=== PATIENT | male | born 1955 | race American Indian/Alaskan Native ===

== ENCOUNTER 2018-08-13 17:09 | Emergency (ER) | payer MEDICAID ==
[2018-08-13 17:51] VITALS: BP 152/108
--- NOTE | 2018-08-13 17:52 | Emergency Department Report ---
Blank Doc - Documentation Documentation: 63 y o male presents with right 3rd digit pain and swelling, worsened since sun day stuck a needle in it to get pus out xray ordered
--- NOTE | 2018-08-13 19:46 | XRay Report ---
FINAL REPORT EXAM: XR FINGER(S) 2+V RT HISTORY: pain/swelling purulent discharge from finger. TECHNIQUE: Frontal view of the right hand and lateral view of the right 3rd finger. Comparison: None FINDINGS: The there is diffuse somewhat linear increased density that appears to be in or on the dermis of the distal aspect of the 3rd finger. This can be seen with topical iodine solutions. There is no other evidence of radiopaque foreign body. There is soft tissue swelling of the distal aspect of the finger. The bony structures are unremarkable. There is no evidence of lytic or blastic change or periosteal r eaction. IMPRESSION: 1. Soft tissue swelling of the distal aspect of the 3rd finger without evidence of bony abnormality. 2. Somewhat linear increased density that appears to be in or on the dermis of the distal aspect of t he 3rd finger which can be seen with topical iodine solutions. Correlation with clinical history and physical exam will be helpful.
[2018-08-13] MEDS ORDERED: NORCO 10/325 PO ONE (20:44)
[2018-08-13] MEDS ORDERED: CLEOCIN IM ONE (20:44)
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
== END 2018-08-13 21:06 | disposition home or self-care (01) ==
LOC: ED 17:09
DX: L03.011 Cellulitis of right finger (principal); F17.200 Nicotine dependence, unspecified, uncomplicated; Z88.2 Allergy status to sulfonamides
CPT/HCPCS: 96372

== ENCOUNTER 2019-11-02 11:01 | Emergency (ER) | payer MEDICAID ==
[2019-11-02 11:14] VITALS: BP 135/92
--- NOTE | 2019-11-02 11:44 | XRay Report ---
CHEST 2 VIEWS INDICATION / CLINICAL INFORMATION: Cough. COMPARISON: None available. FINDINGS: SUPPORT DEVICES: None. HEART / MEDIASTINUM: No significant abnormality. LUNGS / PLEURA: No significant pulmonary or pleural abnormality. No pneumothorax. ADDITIONAL FINDINGS: No significant additional findings. IMPRESSION: 1. No acute findings. Signer Name: Taran Han MD Signed: 11/02/2019 11:40 AM Workstation Name: [email or web address]
[2019-11-02 12:12] LABS: Alanine Aminotransferase 10 units/L (7-56); Albumin 4.1 g/dL (3.9-5); BUN/Creatinine Ratio 17; Blood Urea Nitrogen 20 mg/dL (9-20); Calcium 9.3 mg/dL (8.4-10.2); Hemolysis Index 3
[2019-11-02 12:54] LABS: Basophils % (Auto) 0.6 % (0.0-1.8); Eosinophils # (Auto) 0.2 K/mm3 (0.0-0.4); Eosinophils % (Auto) 6.1 % (0.0-4.3); Hematocrit 32.9 % (35.5-45.6); Hemoglobin 10.9 gm/dl (11.8-15.2); Lymphocytes # (Auto) 1.2 K/mm3 (1.2-5.4); Lymphocytes % (Auto) 39.8 % (13.4-35.0); Mean Corpuscular HGB Conc 33 % (32-34); Mean Corpuscular Volume 83 fl (84-94); Monocytes # (Auto) 0.3 K/mm3 (0.0-0.8); Monocytes % (Auto) 10.5 % (0.0-7.3); Platelet Count 148 K/mm3 (140-440); Red Blood Count 3.96 M/mm3 (3.65-5.03); Red Cell Distribution Width 14.9 % (13.2-15.2)
[2019-11-02 13:36] LABS: Bilirubin,Urine NEG (Negative); Blood,Urine NEG (Negative); Color,Urine Yellow (Yellow); Hyaline Casts,Urine 2 /LPF; Mucus,Urine FEW /HPF; Urobilinogen,Urine < 2.0 mg/dL (<2.0)
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
== END 2019-11-02 14:52 | disposition home or self-care (01) ==
LOC: ED 11:01
DX: J06.9 Acute upper respiratory infection, unspecified (principal); F12.10 Cannabis abuse, uncomplicated; F17.200 Nicotine dependence, unspecified, uncomplicated; Z79.899 Other long term (current) drug therapy; Z88.2 Allergy status to sulfonamides
CPT/HCPCS: 36415; 71046; 80053; 81001; 85025

== ENCOUNTER 2021-07-12 19:31 | Inpatient (IN) | payer MEDICAID ==
[2021-07-12] MEDS ORDERED: ONDANSETRON 4 MG ODT TAB PO ONE (20:51)
[2021-07-12] MEDS ORDERED: ACETAMINOPHEN 500 MG TAB PO ONE (20:51)
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
[2021-07-12 21:17] LABS: Basophils % (Auto) 0.4 % (0.0-1.8); Hematocrit 43.5 % (35.5-45.6); Hemoglobin 13.8 gm/dl (11.8-15.2); Lymphocytes # (Auto) 0.8 K/mm3 (1.2-5.4); Lymphocytes % (Auto) 22.3 % (13.4-35.0); Mean Corpuscular HGB Conc 32 % (32-34); Mean Corpuscular Volume 86 fl (84-94); Monocytes # (Auto) 0.4 K/mm3 (0.0-0.8); Monocytes % (Auto) 10.7 % (0.0-7.3); Platelet Count 155 K/mm3 (140-440); Red Blood Count 5.06 M/mm3 (3.65-5.03); Red Cell Distribution Width 13.2 % (13.2-15.2)
[2021-07-12 21:39] LABS: Alanine Aminotransferase 29 units/L (7-56); Albumin 3.4 g/dL (3.9-5); BUN/Creatinine Ratio 22; Blood Urea Nitrogen 57 mg/dL (9-20); Calcium 8.7 mg/dL (8.4-10.2); Hemolysis Index 59
[2021-07-12] MEDS ORDERED: SODIUM CHLORIDE 0.9% 1000 ML 1,000 ML IV ONE ×2 (21:43→22:52)
--- NOTE | 2021-07-12 21:49 | XRay Report ---
CHEST 2 VIEWS INDICATION / CLINICAL INFORMATION: cough fever. COMPARISON: 01/22/2020 FINDINGS: SUPPORT DEVICES: None. HEART / MEDIASTINUM: No significant abnormality. LUNGS / PLEURA: No significant pulmonary or pleural abnormality. No pneumothorax. ADDITIONAL FINDINGS: No significant additional findings. IMPRESSION: 1. No acute findings. Signer Name: Bora Riggins DO Signed: 07/12/2021 9:45 PM Workstation Name: [id number]
--- NOTE | 2021-07-12 22:33 | Cat Scan Report ---
CT ABDOMEN AND PELVIS WITHOUT CONTRAST INDICATION / CLINICAL INFORMATION: abd pain. TECHNIQUE: Axial CT images were obtained through the abdomen and pelvis without IV contrast. All CT scans at this location are performed using CT dose reduction for ALARA by means of automated exposure control. COMPARISON: None available. FINDINGS: LOWER CHEST: There are scattered groundglass opacities in bilateral lung bases. AORTA / ARTERIES: Mild atherosclerotic calcification without acute abnormality. IVC / VEINS: No significant abnormality. LYMPH NODES: No significant adenopathy. COLON: No significant abnormality. APPENDIX: No significant abnormality. STOMACH / SMALL BOWEL: No significant abnormality. PERITONEUM: No free fluid. No free air. No fluid collection. LIVER: No significant abnormality. GALLBLADDER: Cholelithiasis. BILE DUCTS: No significant abnormality. PANCREAS: No significant abnormality. SPLEEN: No significant abnormality. ADRENALS: No significant abnormality. RIGHT KIDNEY / URETER: Renal cysts. No hydronephrosis. LEFT KIDNEY / URETER: Renal cyst. No hydronephrosis. URINARY BLADDER: No significant abnormality. REPRODUCTIVE ORGANS: No significant abnormality. SKELETAL SYSTEM: Scattered degeneration. ADDITIONAL FINDINGS: None. IMPRESSION: 1. No CT findings to explain symptomatology. 2. Other findings as above. Signer Name: Bora Riggins DO Signed: 07/12/2021 10:28 PM Workstation Name: [id number]
[2021-07-12] MEDS ORDERED: cefTRIAXone/NS 1 GM/50 ML 1 GM/50 ML BAG IV ONE (22:52)
[2021-07-12] MEDS ORDERED: AZITHROMYCIN 250 MG TAB PO ONE (22:53)
[2021-07-12 23:18] LABS: BUN/Creatinine Ratio 20; Blood Urea Nitrogen 59 mg/dL (9-20); Calcium 8.1 mg/dL (8.4-10.2); Hemolysis Index 26
[2021-07-13] MEDS ORDERED: MORPHINE 2 MG/1 ML INJ IV PRN (01:33)
[2021-07-13] MEDS ORDERED: ONDANSETRON 4 MG/2 ML INJ IV PRN (01:33)
[2021-07-13] MEDS ORDERED: ACETAMINOPHEN 325 MG TAB PO PRN (01:33)
[2021-07-13] MEDS ORDERED: HYDROmorphone 1 MG/1 ML INJ IV PRN (01:33)
[2021-07-13] MEDS ORDERED: ALBUTEROL 8.5 GM MDI INHALATION IH PRN (01:36)
--- NOTE | 2021-07-13 01:51 | History and Physical Report ---
History of Present Illness Date of examination: 07/13/21 Date of admission: 07/13/21 Chief complaint: Generalized body ache History of present illness: 65-year-old male with history of hypertension and HIV was brought to the emergency room because of chest pain with generalized body aches for the past 2 weeks. Patient states that symptoms are intermittent however today he had some nausea and vomiting. Patient states nocturnal fever no fever noted in triage today. Last p.o. intake was this a.m. last night and vomiting was this AM. Patient rates body aches at 4/10 at this time generalized symptoms are exacerbated by activity. Symptoms are relieved by nothing tried. Patient arrived to ED via ambulance , pt is ambulatory , alert ,with no acute distress patient states cough productive of thick white, there is no wheezing no stridor. In the emergency room patient's sodium 128, BUN 59, creatinine 2.9, chest x-ray normal, CT abdomen pelvis incidental for bilateral patchy ground glass opacities.we will admit the patient for CAMILLE Pneumonia and dehydration. Past History Past Medical History: HIV/AIDS, hypertension Medications and Allergies Allergies Allergy/AdvReac Type Severity Reaction Status Date / Time Sulfa (Sulfonamide Allergy Hives Verified 07/12/21 19:43 Antibiotics) Home Medications Medication Instructions Recorded Confirmed Last Taken Type Dapsone 100 mg PO DAILY 03/30/15 03/30/15 Unknown History Elviteg/Cob/Emtri/Tenofo Disop 1 each PO DAILY 03/30/15 03/30/15 Unknown History [Stribild Tablet] Lisinopril/Hydrochlorothiazide 1 tab PO QDAY 03/30/15 03/30/15 Unknown History [Zestoretic 20-25 mg] Albuterol Mdi (or & Nicu Only) 2 puff IH QID PRN #1 inhalation 03/31/15 Unknown Rx [ProAir HFA Inhaler] Nystatin [Nystop Powder] 1 applicatio TP BID #1 bottle 03/31/15 Unknown Rx Acetaminophen/Codeine [Tylenol 1 tab PO Q6H PRN #12 tab 08/13/18 Unknown Rx /Codeine # 3 tab] Clindamycin [Clindamycin CAP] 300 mg PO Q8H #21 cap 08/13/18 Unknown Rx Ibuprofen [Motrin] 600 mg PO Q8H PRN #20 tablet 08/13/18 Unknown Rx Albuterol Mdi (or & Nicu Only) 2 puff IH QID PRN #8.5 gram 11/02/19 Unknown Rx [ProAir HFA Inhaler] Benzonatate [Tessalon Perles] 100 mg PO Q8HR #30 capsule 11/02/19 Unknown Rx Fluconazole [Diflucan TAB] 200 mg PO QDAY 21 Days #21 tablet 01/22/20 Unknown Rx traMADoL [Ultram 50 MG tab] 50 mg PO Q6HR PRN #12 tablet 01/22/20 Unknown Rx Active Meds: Active Medications Acetaminophen (Acetaminophen 325 Mg Tab) 650 mg PO Q4H PRN PRN Reason: Pain MILD(1-3)/Fever >100.5/RAMOS Albuterol (Albuterol 8.5 Gm Mdi Inhalation) 2 puff IH QID PRN PRN Reason: Shortness Of Breath Benzonatate (Benzonatate 100 Mg Cap) 100 mg PO Q8HR LACY Dapsone (Dapsone 100mg Tab) 100 mg PO DAILY LACY Famotidine (Famotidine 20 Mg Tab) 20 mg PO BID LACY Fluconazole (Fluconazole 200 Mg Tab) 200 mg PO QDAY LACY; Protocol Heparin Sodium (Porcine) (Heparin 5,000 Unit/1 Ml Vial) 5,000 unit SUB-Q Q8HR LACY Hydromorphone HCl (Hydromorphone 1 Mg/1 Ml Inj) 0.5 mg IV Q3H PRN PRN Reason: Pain , Severe (7-10) Sodium Chloride (Nacl 0.45% 1000 Ml) 1,000 mls @ 100 mls/hr IV DIRECT LACY Ceftriaxone Sodium (Rocephin/Ns 2 Gm/100 Ml) 2 gm in 100 mls @ 200 mls/hr IV Q24H LACY; Protocol Azithromycin (Zithromax/Ns) 500 mg in 250 mls @ 250 mls/hr IV Q24H LACY; Protocol Miscellaneous Medication (Elviteg/Cob/Emtri/Tenofo Disop [Stribild Tablet]) 1 each PO DAILY [facility] Morphine Sulfate (Morphine 2 Mg/1 Ml Inj) 2 mg IV Q4H PRN PRN Reason: Pain, Moderate (4-6) Nystatin (Nystatin Powder 15 Gm) 1 applic TP BID [facility] Ondansetron HCl (Ondansetron 4 Mg/2 Ml Inj) 4 mg IV Q8H PRN PRN Reason: Nausea And Vomiting Sodium Chloride (Sodium Chloride 0.9% 10 Ml Flush Syringe) 10 ml IV BID LACY Sodium Chloride (Sodium Chloride 0.9% 10 Ml Flush Syringe) 10 ml IV PRN PRN PRN Reason: LINE FLUSH Review of Systems Constitutional: fatigue, weakness, malaise, other (Body ache) Gastrointestinal: nausea, vomiting Exam - Constitutional Vitals: Temp Pulse Resp BP Pulse Ox 98.3 F 84 20 130/70 98 07/12/21 19:43 07/12/21 19:43 07/12/21 21:14 07/12/21 19:43 07/12/21 19:43 General appearance: Present: no acute distress, well-nourished - EENT Eyes: Present: PERRL ENT: hearing intact, clear oral mucosa - Neck Neck: Present: supple, normal ROM - Respiratory Respiratory effort: normal Respiratory: bilateral: diminished - Cardiovascular Heart Sounds: Present: S1 & S2. Absent: rub, click - Extremities Extremities: pulses symmetrical, No edema Peripheral Pulses: within normal limits - Abdominal General gastrointestinal: Present: soft, non-tender, non-distended, normal bowel sounds Male genitourinary: Present: normal - Integumentary Integumentary: Present: clear, warm, dry - Musculoskeletal Musculoskeletal: gait normal, strength equal bilaterally - Psychiatric Psychiatric: appropriate mood/affect, intact judgment & insight - Neurologic Neurologic: CNII-XII intact, moves all extremities HEART Score - HEART Score Troponin: Troponin T < 0.010 ng/mL (0.00-0.029) 07/12/21 22:47 Results - Labs CBC & Chem 7: 07/12/21 20:58 07/12/21 22:47 Labs: Laboratory Last Values WBC 3.6 K/mm3 (4.5-11.0) L 07/12/21 20:58 RBC 5.06 M/mm3 (3.65-5.03) H 07/12/21 20:58 Hgb 13.8 gm/dl (11.8-15.2) 07/12/21 20:58 Hct 43.5 % (35.5-45.6) 07/12/21 20:58 MCV 86 fl (84-94) 07/12/21 20:58 MCH 27 pg (28-32) L 07/12/21 20:58 MCHC 32 % (32-34) 07/12/21 20:58 RDW 13.2 % (13.2-15.2) 07/12/21 20:58 Plt Count 155 K/mm3 (140-440) 07/12/21 20:58 Lymph % (Auto) 22.3 % (13.4-35.0) 07/12/21 20:58 [place] % (Auto) 10.7 % (0.0-7.3) H 07/12/21 20:58 Eos % (Auto) 0.0 % (0.0-4.3) 07/12/21 20:58 Baso % (Auto) 0.4 % (0.0-1.8) 07/12/21 20:58 Lymph # (Auto) 0.8 K/mm3 (1.2-5.4) L 07/12/21 20:58 [place] # (Auto) 0.4 K/mm3 (0.0-0.8) 07/12/21 20:58 Eos # (Auto) 0.0 K/mm3 (0.0-0.4) 07/12/21 20:58 Baso # (Auto) 0.0 K/mm3 (0.0-0.1) 07/12/21 20:58 Seg Neutrophils % 66.6 % (40.0-70.0) 07/12/21 20:58 Seg Neutrophils # 2.4 K/mm3 (1.8-7.7) 07/12/21 20:58 Sodium 128 mmol/L (137-145) L 07/12/21 22:47 Potassium 4.4 mmol/L (3.6-5.0) 07/12/21 22:47 Chloride 94.2 mmol/L (98-107) L 07/12/21 22:47 Carbon Dioxide 15 mmol/L (22-30) L 07/12/21 22:47 Anion Gap 23 mmol/L 07/12/21 22:47 BUN 59 mg/dL (9-20) H 07/12/21 22:47 Creatinine 2.9 mg/dL (0.8-1.3) H 07/12/21 22:47 Estimated GFR 27 ml/min 07/12/21 22:47 BUN/Creatinine Ratio 20 % 07/12/21 22:47 Glucose 103 mg/dL (75-100) H 07/12/21 22:47 Lactic Acid 1.30 mmol/L (0.7-2.0) 07/12/21 23:32 Calcium 8.1 mg/dL (8.4-10.2) L 07/12/21 22:47 Total Bilirubin 1.00 mg/dL (0.1-1.2) 07/12/21 20:58 AST 76 units/L (5-40) H 07/12/21 20:58 ALT 29 units/L (7-56) 07/12/21 20:58 Alkaline Phosphatase 67 units/L (35-129) 07/12/21 20:58 Troponin T < 0.010 ng/mL (0.00-0.029) 07/12/21 22:47 Total Protein 9.3 g/dL (6.3-8.2) H 07/12/21 20:58 Albumin 3.4 g/dL (3.9-5) L 07/12/21 20:58 Albumin/Globulin Ratio 0.6 % 07/12/21 20:58 - Imaging and Cardiology Chest x-ray: report reviewed CT scan - abdomen: report reviewed Assessment and Plan VTE prophylaxis?: Chemical Plan of care discussed with patient/family: Yes - Patient Problems (1) CAMILLE (acute kidney injury) Current Visit: Yes Status: Acute Plan to address problem: Admit the patient to the medical floor. Abnormal saline at the rate of 100 cc/h. Avoid nephrotoxic drug. We will hold the lisinopril and hydrochlorothiazide. Renally dose medication. Reconsult nephrology for evaluation. Recheck BMP in the morning (2) Dehydration Current Visit: Yes Status: Acute Plan to address problem: Half-normal saline at the rate of 100 cc/h. We rehydrate the patient slowly. Recheck BMP in the morning (3) Pneumonia Current Visit: Yes Status: Acute Plan to address problem: Oxygen via nasal cannula 3 department at. DuoNeb nebulizer every 4 hours. Albuterol by nebulizer every 4 hours as needed. Rocephin 2 g IV daily. Zithromax 500 mg IV daily. We will do the blood culture and sputum culture. We will also consult infectious disease evaluation. Recheck CBC BMP in the morning (4) Hypertension Current Visit: Yes Status: Acute Plan to address problem: We continue the home medication. We will monitor the blood pressure closely (5) HIV (human immunodeficiency virus infection) Current Visit: Yes Status: Acute Plan to address problem: Stable. We will continue HIV medication. We also consult infectious disease evaluation (6) DVT prophylaxis Current Visit: Yes Status: Acute Plan to address problem: Heparin 5000 units subcu every 8 hours for DVT prophylaxis. Pepcid 20 mg p.o. twice daily for GI prophylaxis. Patient is a full code
[2021-07-13] MEDS ORDERED: ALBUTEROL 2.5 MG/3 ML NEBU IH PRN (01:57)
[2021-07-13] MEDS ORDERED: SODIUM CHLORIDE 0.45% 1000 ML 1,000 ML IV SCH (02:00)
[2021-07-13] MEDS: HEPARIN 5,000 UNIT/1 ML VIAL SUB-Q SCH ×3 (06:00→21:56)
[2021-07-13] MEDS ORDERED: FLUCONAZOLE 200 MG TAB PO SCH (10:00)
[2021-07-13] MEDS ORDERED: [UNRECOGNIZED DRUG - OTHER] PO SCH (10:00)
[2021-07-13] MEDS ORDERED: FAMOTIDINE 20 MG TAB PO SCH (10:00)
--- NOTE | 2021-07-13 11:09 | Electrocardiograph Report ---
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 Probable anteroseptal infarct, old No previous ECG available for comparison Electronically Signed On 07-13-2021 11:09:13 EST by Andrew Lovell
[2021-07-13] MEDS: DAPSONE 100 MG PO SCH (14:51)
[2021-07-13] MEDS: FAMOTIDINE 10 MG TAB PO SCH ×2 (14:51→21:54)
[2021-07-13] MEDS: NYSTATIN POWDER 15 GM TP SCH ×2 (14:51→22:00)
[2021-07-13] MEDS: BENZONATATE 100 MG CAP PO SCH ×3 (14:51→21:54)
[2021-07-13] MEDS ORDERED: EMTRICITABINE 200 MG CAP PO SCH ×2 (15:00→16:00)
[2021-07-13] MEDS ORDERED: TENOFOVIR 300 MG TAB PO SCH ×2 (15:00→16:00)
--- NOTE | 2021-07-13 15:07 | Consultation ---
History of Present Illness - Reason for Consult Consult date: 07/13/21 PUI, HIV Requesting physician: JEN ROSEN - History of Present Illness The patient is a 65-year-old male with hypertension, HIV on ART admitted with body aches, chest pain, nausea, vomiting and fever. Upon work-up in the emergency room, labs showed hyponatremia, elevated creatinine, CT abdomen pelvis showed patchy groundglass opacities concerning for pneumonia. Afebrile, hypoxic requiring oxygen by nasal cannula. Infectious diseases was consulted for additional evaluation. Labs also showed leukopenia with WBC 3.6, procalcitonin 0.1 Review of Systems: reviewed in the chart, unable to obtain, minimize risk of transmission Past History Past Medical History: HIV/AIDS, hypertension Medications and Allergies Allergies Allergy/AdvReac Type Severity Reaction Status Date / Time Sulfa (Sulfonamide Allergy Hives Verified 07/12/21 19:43 Antibiotics) Home Medications Medication Instructions Recorded Confirmed Last Taken Type Dapsone 100 mg PO DAILY 03/30/15 03/30/15 Unknown History Elviteg/Cob/Emtri/Tenofo Disop 1 each PO DAILY 03/30/15 03/30/15 Unknown History [Stribild Tablet] Lisinopril/Hydrochlorothiazide 1 tab PO QDAY 03/30/15 03/30/15 Unknown History [Zestoretic 20-25 mg] Albuterol Mdi (or & Nicu Only) 2 puff IH QID PRN #1 inhalation 03/31/15 Unknown Rx [ProAir HFA Inhaler] Nystatin [Nystop Powder] 1 applicatio TP BID #1 bottle 03/31/15 Unknown Rx Acetaminophen/Codeine [Tylenol 1 tab PO Q6H PRN #12 tab 08/13/18 Unknown Rx /Codeine # 3 tab] Clindamycin [Clindamycin CAP] 300 mg PO Q8H #21 cap 08/13/18 Unknown Rx Ibuprofen [Motrin] 600 mg PO Q8H PRN #20 tablet 08/13/18 Unknown Rx Albuterol Mdi (or & Nicu Only) 2 puff IH QID PRN #8.5 gram 11/02/19 Unknown Rx [ProAir HFA Inhaler] Benzonatate [Tessalon Perles] 100 mg PO Q8HR #30 capsule 11/02/19 Unknown Rx Fluconazole [Diflucan TAB] 200 mg PO QDAY 21 Days #21 tablet 01/22/20 Unknown R x traMADoL [Ultram 50 MG tab] 50 mg PO Q6HR PRN #12 tablet 01/22/20 Unknown Rx Active Meds: Active Medications Acetaminophen (Acetaminophen 325 Mg Tab) 650 mg PO Q4H PRN PRN Reason: Pain MILD(1-3)/Fever >100.5/RAMOS Albuterol (Albuterol 2.5 Mg/3 Ml Nebu) 2.5 mg IH Q4HRT PRN PRN Reason: Shortness Of Breath Azithromycin (Azithromycin 250 Mg Tab) 500 mg PO QHS [facility] Stop: 07/16/21 22:01 Benzonatate (Benzonatate 100 Mg Cap) 100 mg PO Q8HR [facility] Last Admin: 07/13/21 14:51 Dose: 100 mg Dapsone (Dapsone 100mg Tab) 100 mg PO DAILY [facility] Last Admin: 07/13/21 14:51 Dose: 100 mg Dexamethasone (Dexamethasone 4 Mg Tab) 6 mg PO DAILY [facility] Stop: 07/23/21 14:59 Emtricitabine (Emtricitabine 200 Mg Cap) 200 mg PO Q48H [facility] Famotidine (Famotidine 10 Mg Tab) 10 mg PO BID [facility] Last Admin: 07/13/21 14:51 Dose: 10 mg Heparin Sodium (Porcine) (Heparin 5,000 Unit/1 Ml Vial) 5,000 unit SUB-Q Q8HR [facility] Hydromorphone HCl (Hydromorphone 1 Mg/1 Ml Inj) 0.5 mg IV Q3H PRN PRN Reason: Pain , Severe (7-10) Sodium Chloride (Nacl 0.45% 1000 Ml) 1,000 mls @ 100 mls/hr IV DIRECT [facility]ACY Ceftriaxone Sodium (Rocephin/Ns 2 Gm/100 Ml) 2 gm in 100 mls @ 200 mls/hr IV Q24H [facility]; Protocol Morphine Sulfate (Morphine 2 Mg/1 Ml Inj) 2 mg IV Q4H PRN PRN Reason: Pain, Moderate (4-6) Nystatin (Nystatin Powder 15 Gm) 1 applic TP BID [facility] Last Admin: 07/13/21 14:51 Dose: 1 applic Ondansetron HCl (Ondansetron 4 Mg/2 Ml Inj) 4 mg IV Q8H PRN PRN Reason: Nausea And Vomiting Sodium Chloride (Sodium Chloride 0.9% 10 Ml Flush Syringe) 10 ml IV BID [facility] Last Admin: 07/13/21 14:51 Dose: 10 ml Sodium Chloride (Sodium Chloride 0.9% 10 Ml Flush Syringe) 10 ml IV PRN PRN PRN Reason: LINE FLUSH Tenofovir Disoproxil Fumarate (Tenofovir 300 Mg Tab) 300 mg PO Q72H [facility] Physical Examination - Physical Exam Narrative exam: Physical Exam (reviewed in chart to minimize risk of transmission) Constitutional: deferred Head, Ears, Nose: deferred Eyes: deferred Neck: deferred Oral: deferred Cardiovascular: deferred Respiratory: deferred GI: deferred Musculoskeletal: deferred Skin: deferred Hem/Lymphatic: deferred Psych: deferred Neurological: deferred - Constitutional Vitals: Vital Signs Temp Pulse Resp BP Pulse Ox 98.3 F 84 20 135/87 91 07/12/21 19:43 07/12/21 19:43 07/12/21 21:14 07/13/21 06:46 07/13/21 06:46 Temperature -Last 24 Hours Temperature 98.3 F Results - Labs CBC & Chem 7: 07/12/21 20:58 07/12/21 22:47 Labs: Abnormal lab results 07/12/21 07/12/21 07/12/21 Range/Units 20:58 20:58 22:47 WBC 3.6 L (4.5-11.0) K/mm3 RBC 5.06 H (3.65-5.03) M/mm3 MCH 27 L (28-32) pg Ector % (Auto) 10.7 H (0.0-7.3) % Lymph # (Auto) 0.8 L (1.2-5.4) K/mm3 Sodium 131 L 128 L (137-145) mmol/L Chloride 96.0 L 94.2 L (98-107) mmol/L Carbon Dioxide 17 L 15 L (22-30) mmol/L BUN 57 H 59 H (9-20) mg/dL Creatinine 2.6 H 2.9 H (0.8-1.3) mg/dL Glucose 106 H 103 H (75-100) mg/dL Calcium 8.1 L (8.4-10.2) mg/dL AST 76 H (5-40) units/L Total Protein 9.3 H (6.3-8.2) g/dL Albumin 3.4 L (3.9-5) g/dL - Imaging and Cardiology Chest x-ray: report reviewed, image reviewed (no pna) CT scan - abdomen: report reviewed, image reviewed (b/l lower chest with GGO) Assessment and Plan Cultures: SARS CoV2 PCR: Pending 07/12/2021 blood culture: In process A/P: 65-year-old male with hypertension, HIV on ART admitted with body aches, chest pain, nausea, vomiting and fever: #Bilateral pneumonia: With concern for COVID-19. CT with b/l GGO. #Acute hypoxic respiratory failure: Requiring nasal cannula. #CAMILLE: Renally adjust meds and antibiotics. #HIV: on ART. Recs: -Renally adjust ART, as per formulary therapeutic interchange continue tenofovir, emtricitabine, dolutegravir -Follow-up COVID-19 PCR, if negative discontinue steroids -Not a candidate for Remdesivir given elevated creatinine -procalcitonin is low, if COVID positive, d/c abx -trend ferritin, d-dimer, CRP, LDH -HIV RNA PCR, CD4 count ordered Velma Paul MD, FACWILBERTO [facility] O: [phone] F: [phone]
--- NOTE | 2021-07-13 16:06 | Event Note ---
Date: 07/13/21 The patient was evaluated and seen to be hemodynamically stable. The patient is pending a coronavirus PCR to determine if his antibiotics should be discontinued. He was weaned off of supplemental oxygen today.
[2021-07-13] MEDS: DOLUTEGRAVIR 50 MG TAB PO SCH (16:48)
[2021-07-13] MEDS: DEXAMETHASONE 4 MG TAB PO SCH (16:54)
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
[2021-07-13] MEDS ORDERED: SODIUM BICARBONATE 75 MEQ in SODIUM CHLORIDE 0.45% 1000 ML 1,000 ML IV SCH (18:30)
[2021-07-13] MEDS: cefTRIAXone/NS 2 GM/100 ML 2 GM/100 ML BAG IV SCH (21:52)
[2021-07-13] MEDS: AZITHROMYCIN 250 MG TAB PO SCH (21:54)
[2021-07-13] MEDS ORDERED: AZITHROMYCIN/NS 500 MG/250 ML 500 MG/250 ML BAG IV SCH (22:00)
[2021-07-14 05:45] LABS: Creatinine,Urine 157.9 mg/dL (0.1-20.0)
[2021-07-14 06:01] LABS: Protein/Creatinine Ratio,Urine 2.37
[2021-07-14] MEDS: BENZONATATE 100 MG CAP PO SCH ×3 (06:02→23:28)
[2021-07-14] MEDS: HEPARIN 5,000 UNIT/1 ML VIAL SUB-Q SCH ×3 (06:02→23:28)
[2021-07-14 06:37] LABS: Basophils % (Auto) 0.2 % (0.0-1.8); Hematocrit 36.5 % (35.5-45.6); Hemoglobin 11.7 gm/dl (11.8-15.2); Lymphocytes # (Auto) 0.5 K/mm3 (1.2-5.4); Lymphocytes % (Auto) 13.7 % (13.4-35.0); Mean Corpuscular HGB Conc 32 % (32-34); Mean Corpuscular Volume 85 fl (84-94); Monocytes # (Auto) 0.1 K/mm3 (0.0-0.8); Monocytes % (Auto) 3.7 % (0.0-7.3); Platelet Count 146 K/mm3 (140-440); Red Blood Count 4.29 M/mm3 (3.65-5.03); Red Cell Distribution Width 13.5 % (13.2-15.2)
[2021-07-14 06:53] LABS: C-Reactive Protein 3.1 mg/dL (0.00-1.30); Calcium 8.2 mg/dL (8.4-10.2)
--- NOTE | 2021-07-14 09:06 | Progress Note ---
Assessment and Plan Impression: * CAMILLE on CKD * HIV * PNA--Bilateral * Covid PUI * metabolic acidosis * hyponatremia * Acute hypoxic resp failure Plan: * daily lytes and strict i/os * continue bicarb gtt * hold tenofovir with acidosis and worsening renal function * avoid nephrotoxins * follow up ua and urine lytes * ct noted--no hydro or masses * no indication for [facility] * follow up covid prn * ID following \ Subjective Date of service: 07/14/21 Principal diagnosis: camille, metabolic acidosis Interval history: resting in bed labs and chart reviewed Objective - Exam Narrative Exam: - General Limitations: No Limitations General appearance: alert, in no apparent distress - Head Head exam: Present: atraumatic, normocephalic - Eye Eye exam: Present: normal appearance, EOMI Pupils: Present: normal accommodation - ENT ENT exam: Present: mucous membranes moist - Neck Neck exam: Present: normal inspection, full ROM. Absent: tenderness, lymphadenopathy - Respiratory Respiratory exam: Present: normal lung sounds bilaterally. Absent: respiratory distress, wheezes, stridor, chest wall tenderness - Cardiovascular Cardiovascular Exam: Present: regular rate, normal rhythm, normal heart sounds. Absent: systolic murmur, diastolic murmur, rubs, gallop - GI/Abdominal GI/Abdominal exam: Present: soft, normal bowel sounds. Absent: distended, tenderness, guarding, rebound, rigid, bruit, hernia - Rectal Rectal exam: Present: deferred - Extremities Exam Extremities exam: Present: normal inspection, full ROM, normal capillary refill. Absent: tenderness - Back Exam Back exam: Present: normal inspection, full ROM. Absent: CVA tenderness (R), CVA tenderness (L) - Neurological Exam Neurological exam: Present: alert, oriented X3, CN II-XII intact - Psychiatric Psychiatric exam: Present: normal affect, normal mood - Skin Skin exam: Present: warm, dry, intact, normal color. Absent: rash - Vital Signs Vital signs: Vital Signs - 12hr 07/13/21 07/13/21 07/13/21 22:26 23:00 23:23 Temperature 97.6 F Pulse Rate 81 Respiratory 22 Rate Blood Pressure 139/97 O2 Sat by Pulse 85 95 93 Oximetry 07/14/21 04:48 Temperature 97.3 F L Pulse Rate 65 Respiratory 18 Rate Blood Pressure 114/78 O2 Sat by Pulse 95 Oximetry - Lab 07/14/21 05:57 07/14/21 05:57 Most recent lab results Calcium 8.2 mg/dL (8.4-10.2) L 07/14/21 05:57 Urine Creatinine 157.9 mg/dL (0.1-20.0) H 07/14/21 00:45 Urine Sodium 47 mmol/L 07/14/21 00:45 Urine Total Protein 375 mg/dL (5-11.8) H 07/14/21 00:45 Medications & Allergies - Medications Allergies/Adverse Reactions: Allergies Sulfa (Sulfonamide Antibiotics) Allergy (Intermediate, Verified 07/14/21 07:34) Hives Home Medications: Home Medications Medication Instructions Recorded Confirmed Last Taken Type Dapsone 100 mg PO DAILY 03/30/15 07/14/21 Unknown History Elviteg/Cob/Emtri/Tenofo Disop 1 each PO DAILY 03/30/15 07/14/21 Unknown History [Stribild Tablet] Lisinopril/Hydrochlorothiazide 1 tab PO QDAY 03/30/15 07/14/21 Unknown History [Zestoretic 20-25 mg] Albuterol Mdi (or & Nicu Only) 2 puff IH QID PRN #1 inhalation 03/31/15 07/14/21 Unknown Rx [ProAir HFA Inhaler] Nystatin [Nystop Powder] 1 applicatio TP BID #1 bottle 03/31/15 07/14/21 Unknown Rx Acetaminophen/Codeine [Tylenol 1 tab PO Q6H PRN #12 tab 08/13/18 07/14/21 Unkno wn Rx /Codeine # 3 tab] Clindamycin [Clindamycin CAP] 300 mg PO Q8H #21 cap 08/13/18 07/14/21 Unknown Rx Ibuprofen [Motrin] 600 mg PO Q8H PRN #20 tablet 08/13/18 07/14/21 Unknown Rx Albuterol Mdi (or & Nicu Only) 2 puff IH QID PRN #8.5 gram 11/02/19 07/14/21 Unknown Rx [ProAir HFA Inhaler] Benzonatate [Tessalon Perles] 100 mg PO Q8HR #30 capsule 11/02/19 07/14/21 Unknown Rx Fluconazole [Diflucan TAB] 200 mg PO QDAY 21 Days #21 tablet 01/22/20 07/14/21 Unknown Rx traMADoL [Ultram 50 MG tab] 50 mg PO Q6HR PRN #12 tablet 01/22/20 07/14/21 Unknown Rx Active Medications: Generic Name Dose Route Start Last Admin Trade Name Freq PRN Reason Stop Dose Admin Acetaminophen 650 mg 07/13/21 01:33 07/13/21 21:54 Acetaminophen 325 Mg Tab PO 650 mg Q4H PRN Administration Pain MILD(1-3)/Fever >100.5/RAMOS Albuterol 2.5 mg 07/13/21 01:57 Albuterol 2.5 Mg/3 Ml Nebu IH Q4HRT PRN Shortness Of Breath Azithromycin 500 mg 07/13/21 22:00 07/13/21 21:54 Azithromycin 250 Mg Tab PO 07/16/21 22:01 500 mg QHS LACY Administration Benzonatate 100 mg 07/13/21 06:00 07/14/21 06:02 Benzonatate 100 Mg Cap PO 100 mg Q8HR [facility] Administration Dapsone 100 mg 07/13/21 10:00 07/13/21 14:51 Dapsone 100mg Tab PO 100 mg DAILY [facility] Administration Dexamethasone 6 mg 07/13/21 15:00 07/13/21 16:54 Dexamethasone 4 Mg Tab PO 07/23/21 14:59 6 mg DAILY [facility]Y Administration Emtricitabine 200 mg 07/13/21 15:00 07/13/21 16:51 Emtricitabine 200 Mg Cap PO 200 mg Q48H [facility] Administration Famotidine 10 mg 07/13/21 10:00 07/13/21 21:54 Famotidine 10 Mg Tab PO 10 mg BID [facility] Administration Heparin Sodium (Porcine) 5,000 unit 07/13/21 06:00 07/14/21 06:02 Heparin 5,000 Unit/1 Ml Vial SUB-Q 5,000 unit Q8HR [facility] Administration Hydromorphone HCl 0.5 mg 07/13/21 01:33 Hydromorphone 1 Mg/1 Ml Inj IV Q3H PRN Pain , Severe (7-10) Ceftriaxone Sodium 2 gm in 100 mls @ 200 mls/hr 07/13/21 22:00 07/13/21 21:52 Rocephin/Ns 2 Gm/100 Ml IV 200 mls/hr Q24H [facility] Administration Protocol Sodium Bicarbonate 150 meq/ 1,150 mls @ 125 mls/hr 07/14/21 10:00 Dextrose IV DIRECT LACY Morphine Sulfate 2 mg 07/13/21 01:33 Morphine 2 Mg/1 Ml Inj IV Q4H PRN Pain, Moderate (4-6) Nystatin 1 applic 07/13/21 10:00 07/13/21 22:00 Nystatin Powder 15 Gm TP Not Given BID [facility] Ondansetron HCl 4 mg 07/13/21 01:33 Ondansetron 4 Mg/2 Ml Inj IV Q8H PRN Nausea And Vomiting Sodium Chloride 10 ml 07/13/21 10:00 07/13/21 21:55 Sodium Chloride 0.9% 10 Ml Flush Syringe IV 10 ml BID [facility] Administration Sodium Chloride 10 ml 07/13/21 01:33 Sodium Chloride 0.9% 10 Ml Flush Syringe IV PRN PRN LINE FLUSH
[2021-07-14] MEDS: DEXAMETHASONE 4 MG TAB PO SCH (09:12)
[2021-07-14] MEDS: FAMOTIDINE 10 MG TAB PO SCH ×2 (09:12→23:28)
[2021-07-14] MEDS: DOLUTEGRAVIR 50 MG TAB PO SCH (09:13)
[2021-07-14] MEDS: NYSTATIN POWDER 15 GM TP SCH ×2 (10:00→23:33)
[2021-07-14] MEDS: DAPSONE 100 MG PO SCH (10:00)
--- NOTE | 2021-07-14 11:16 | Progress Note ---
Assessment and Plan Assessment and plan: #CAMILLE on CKD stage 3 Creatinine 2.0 (previously 2.9) Nephrology consulted; appreciate recs Encourage continued p.o. intake with fluids. Patient expresses understanding. Likely in the setting of pneumonia. Renally dose medications and avoid nephrotoxic meds. Continue to monitor with daily BMP #Possible COVID-19 pneumonia #Possible community-acquired pneumonia #Acute hypoxic respiratory failure - etiology: Currently unknown - baseline oxygen requirements: None - supplemental oxygen: Currently on 3 L nasal cannula - Continue protocol: continue pulse oximetry, wean oxygen as tolerated, ordered incentive spirometry and educated patient on how to use it and its importance. Pending coronavirus PCR. Unsure as to why patient was not swabbed yesterday when originally ordered. If positive, antibiotics can be discontinued. Continue p.o. Decadron 6 mg daily x10 days. Can be discontinued if coronavirus PCR is negative. Continue azithromycin 500 mg daily and Rocephin 2 g daily in the setting of possible community-acquired pneumonia. Infectious disease consulted; appreciate recs - continue to monitor #Dehydrationresolved Status post IV fluid resuscitation. Encourage patient to increase p.o. intake. #Hypertension - home medications: Lisinopril/HCTZ 20-25 mg daily - current medications: Currently holding as patient is normotensive - SBP goal <160 and DBP goal <90 while inpatient - continue to monitor #HIV Continue home medications. Infectious disease consulted; appreciate recs #Advanced care planning -Disease education conducted, care plan discussed, diagnoses discussed, prognosis discussed, and patient acknowledges understanding with care plan -Time: +30 min Disposition Plan: Continue medical management Total Time Spent with Patient (Minutes): 45 minutes History Interval history: No acute events overnight. Hospitalist Physical - Constitutional Vitals: Temp Pulse Resp BP Pulse Ox 97.3 F L 65 18 114/78 95 07/14/21 04:48 07/14/21 04:48 07/14/21 04:48 07/14/21 04:48 07/14/21 04:48 General appearance: Present: no acute distress, well-nourished - EENT Eyes: Present: PERRL, EOM intact ENT: hearing intact, clear oral mucosa, dentition normal - Neck Neck: Present: supple, normal ROM - Respiratory Respiratory effort: normal Respiratory: bilateral: diminished (On 3 L nasal cannula) - Cardiovascular Rhythm: regular Heart Sounds: Present: S1 & S2 - Extremities Extremities: no ischemia, pulses intact, pulses symmetrical, No edema, normal temperature, normal color, Full ROM Peripheral Pulses: within normal limits - Abdominal General gastrointestinal: soft, non-tender, non-distended, normal bowel sounds - Integumentary Integumentary: Present: clear, warm, dry - Psychiatric Psychiatric: appropriate mood/affect, cooperative - Neurologic Neurologic: CNII-XII intact, moves all extremities - Allied Health Allied health notes reviewed: nursing HEART Score - HEART Score Troponin: Troponin T < 0.010 ng/mL (0.00-0.029) 07/12/21 22:47 Results - Labs CBC & Chem 7: 07/14/21 05:57 07/14/21 05:57 Labs: Laboratory Last Values WBC 3.7 K/mm3 (4.5-11.0) L 07/14/21 05:57 RBC 4.29 M/mm3 (3.65-5.03) 07/14/21 05:57 Hgb 11.7 gm/dl (11.8-15.2) L 07/14/21 05:57 Hct 36.5 % (35.5-45.6) D 07/14/21 05:57 MCV 85 fl (84-94) 07/14/21 05:57 MCH 27 pg (28-32) L 07/14/21 05:57 MCHC 32 % (32-34) 07/14/21 05:57 RDW 13.5 % (13.2-15.2) 07/14/21 05:57 Plt Count 146 K/mm3 (140-440) 07/14/21 05:57 Lymph % (Auto) 13.7 % (13.4-35.0) 07/14/21 05:57 Wilkinson % (Auto) 3.7 % (0.0-7.3) 07/14/21 05:57 Eos % (Auto) 0.0 % (0.0-4.3) 07/14/21 05:57 Baso % (Auto) 0.2 % (0.0-1.8) 07/14/21 05:57 Lymph # (Auto) 0.5 K/mm3 (1.2-5.4) L 07/14/21 05:57 Wilkinson # (Auto) 0.1 K/mm3 (0.0-0.8) 07/14/21 05:57 Eos # (Auto) 0.0 K/mm3 (0.0-0.4) 07/14/21 05:57 Baso # (Auto) 0.0 K/mm3 (0.0-0.1) 07/14/21 05:57 Seg Neutrophils % 82.4 % (40.0-70.0) H 07/14/21 05:57 Seg Neutrophils # 3.0 K/mm3 (1.8-7.7) 07/14/21 05:57 D-Dimer 345.29 ng/mlDDU (0-234) H 07/14/21 05:57 Sodium 135 mmol/L (137-145) L D 07/14/21 05:57 Potassium 5.2 mmol/L (3.6-5.0) H 07/14/21 05:57 Chloride 105.1 mmol/L (98-107) 07/14/21 05:57 Carbon Dioxide 19 mmol/L (22-30) L 07/14/21 05:57 Anion Gap 16 mmol/L 07/14/21 05:57 BUN 45 mg/dL (9-20) H 07/14/21 05:57 Creatinine 2.0 mg/dL (0.8-1.3) H 07/14/21 05:57 Estimated GFR 41 ml/min 07/14/21 05:57 BUN/Creatinine Ratio 23 % 07/14/21 05:57 Glucose 170 mg/dL (75-100) H 07/14/21 05:57 Lactic Acid 1.30 mmol/L (0.7-2.0) 07/12/21 23:32 Calcium 8.2 mg/dL (8.4-10.2) L 07/14/21 05:57 Ferritin 6242.0 ng/mL (30.0-300.0) H 07/14/21 05:57 Total Bilirubin 1.00 mg/dL (0.1-1.2) 07/12/21 20:58 AST 76 units/L (5-40) H 07/12/21 20:58 ALT 29 units/L (7-56) 07/12/21 20:58 Alkaline Phosphatase 67 units/L (35-129) 07/12/21 20:58 Lactate Dehydrogenase 506 units/L (91-180) H 07/14/21 05:57 Troponin T < 0.010 ng/mL (0.00-0.029) 07/12/21 22:47 C-Reactive Protein 3.10 mg/dL (0.00-1.30) H 07/14/21 05:57 Total Protein 9.3 g/dL (6.3-8.2) H 07/12/21 20:58 Albumin 3.4 g/dL (3.9-5) L 07/12/21 20:58 Albumin/Globulin Ratio 0.6 % 07/12/21 20:58 Procalcitonin 0.10 ng/mL (<0.15) 07/13/21 08:29 Urine Eosinophils None seen (None Seen) 07/14/21 00:45 Urine Creatinine 157.9 mg/dL (0.1-20.0) H 07/14/21 00:45 Protein/Creatinin Ratio 2.37 07/14/21 00:45 Urine Sodium 47 mmol/L 07/14/21 00:45 Urine Total Protein 375 mg/dL (5-11.8) H 07/14/21 00:45 Microbiology: Microbiology 07/12/21 23:32 Peripheral/Venous Blood Culture - Preliminary NO GROWTH AFTER 24 HOURS 07/13/21 00:11 Peripheral/Venous Blood Culture - Preliminary NO GROWTH AFTER 24 HOURS Chavarria/IV: Voiding Method Bedside Commode Active Medications - Current Medications Current Medications: Generic Name Dose Route Start Last Admin Trade Name Freq PRN Reason Stop Dose Admin Acetaminophen 650 mg 07/13/21 01:33 07/13/21 21:54 Acetaminophen 325 Mg Tab PO 650 mg Q4H PRN Administration Pain MILD(1-3)/Fever >100.5/RAMOS Albuterol 2.5 mg 07/13/21 01:57 Albuterol 2.5 Mg/3 Ml Nebu IH Q4HRT PRN Shortness Of Breath Azithromycin 500 mg 07/13/21 22:00 07/13/21 21:54 Azithromycin 250 Mg Tab PO 07/16/21 22:01 500 mg QHS LACY Administration Benzonatate 100 mg 07/13/21 06:00 07/14/21 06:02 Benzonatate 100 Mg Cap PO 100 mg Q8HR LACY Administration Dapsone 100 mg 07/13/21 10:00 07/13/21 14:51 Dapsone 100mg Tab PO 100 mg DAILY LACY Administration Dexamethasone 6 mg 07/13/21 15:00 07/14/21 09:12 Dexamethasone 4 Mg Tab PO 07/23/21 14:59 6 mg DAILY LACY Administration Emtricitabine 200 mg 07/13/21 15:00 07/13/21 16:51 Emtricitabine 200 Mg Cap PO 200 mg Q48H LACY Administration Famotidine 10 mg 07/13/21 10:00 07/14/21 09:12 Famotidine 10 Mg Tab PO 10 mg BID LACY Administration Heparin Sodium (Porcine) 5,000 unit 07/13/21 06:00 07/14/21 06:02 Heparin 5,000 Unit/1 Ml Vial SUB-Q 5,000 unit Q8HR LACY Administration Hydromorphone HCl 0.5 mg 07/13/21 01:33 Hydromorphone 1 Mg/1 Ml Inj IV Q3H PRN Pain , Severe (7-10) Ceftriaxone Sodium 2 gm in 100 mls @ 200 mls/hr 07/13/21 22:00 07/13/21 21:52 Rocephin/Ns 2 Gm/100 Ml IV 200 mls/hr Q24H LACY Administration Protocol Sodium Bicarbonate 150 meq/ 1,150 mls @ 125 mls/hr 07/14/21 10:00 Dextrose IV DIRECT LACY Morphine Sulfate 2 mg 07/13/21 01:33 Morphine 2 Mg/1 Ml Inj IV Q4H PRN Pain, Moderate (4-6) Nystatin 1 applic 07/13/21 10:00 07/13/21 22:00 Nystatin Powder 15 Gm TP Not Given BID LACY Ondansetron HCl 4 mg 07/13/21 01:33 Ondansetron 4 Mg/2 Ml Inj IV Q8H PRN Nausea And Vomiting Sodium Chloride 10 ml 07/13/21 10:00 07/14/21 09:13 Sodium Chloride 0.9% 10 Ml Flush Syringe IV 10 ml BID LACY Administration Sodium Chloride 10 ml 07/13/21 01:33 Sodium Chloride 0.9% 10 Ml Flush Syringe IV PRN PRN LINE FLUSH Sodium Polystyrene Sulfonate 15 gm 07/14/21 11:05 Sodium Polystyrene 15 Gm/60 Ml Oral Liqd PO 07/14/21 11:06 ONCE ONE Nutrition/Malnutrition Assess - Dietary Evaluation Nutrition/Malnutrition Findings: Nutrition Notes Start: 07/14/21 10:03 Freq: Status: Active Protocol: Document 07/14/21 10:03 HARESH (Rec: 07/14/21 10:04 HARESH [id number]) Nutrition Notes Need for Assessment generated from: laserist Initial or Follow up Brief Note Subjective/Other Information Pt screened for skin risk, however, Jack score is 19. Will assess upon further consult or LOS.
[2021-07-14] MEDS ORDERED: SODIUM POLYSTYRENE 15 GM/60 ML ORAL LIQD PO SCH (11:30)
[2021-07-14] MEDS: SODIUM BICARBONATE 150 MEQ in DEXTROSE 5% IN WATER 1,000 ML IV SCH (13:59)
[2021-07-14] MEDS: AZITHROMYCIN 250 MG TAB PO SCH (23:28)
[2021-07-14] MEDS: cefTRIAXone/NS 2 GM/100 ML 2 GM/100 ML BAG IV SCH (23:30)
[2021-07-15] MEDS: SODIUM BICARBONATE 150 MEQ in DEXTROSE 5% IN WATER 1,000 ML IV SCH (04:36)
[2021-07-15] MEDS: HEPARIN 5,000 UNIT/1 ML VIAL SUB-Q SCH ×3 (05:38→23:22)
[2021-07-15] MEDS: BENZONATATE 100 MG CAP PO SCH ×3 (05:39→23:22)
[2021-07-15 08:21] LABS: Basophils % (Auto) 0.2 % (0.0-1.8); Hemoglobin 10.7 gm/dl (11.8-15.2); Lymphocytes # (Auto) 0.5 K/mm3 (1.2-5.4); Lymphocytes % (Auto) 10.1 % (13.4-35.0); Mean Corpuscular HGB Conc 32 % (32-34); Mean Corpuscular Volume 85 fl (84-94); Monocytes # (Auto) 0.3 K/mm3 (0.0-0.8); Monocytes % (Auto) 5.6 % (0.0-7.3); Platelet Count 173 K/mm3 (140-440); Red Blood Count 3.88 M/mm3 (3.65-5.03); Red Cell Distribution Width 13.2 % (13.2-15.2)
[2021-07-15 08:42] LABS: Calcium 7.7 mg/dL (8.4-10.2)
--- NOTE | 2021-07-15 10:02 | Progress Note ---
Assessment and Plan Assessment and plan: #CAMILLE on CKD stage 3improving Creatinine 2.0-->1.8 (previously 2.9) Nephrology consulted; appreciate recs Encourage continued p.o. intake with fluids. Patient expresses understanding. Likely in the setting of pneumonia. Renally dose medications and avoid nephrotoxic meds. Continue to monitor with daily BMP #COVID-19 pneumonia #Acute hypoxic respiratory failure - etiology: COVID-19 infection - baseline oxygen requirements: None - supplemental oxygen: Currently on 3.5 L nasal cannula - Continue protocol: continue pulse oximetry, wean oxygen as tolerated, ordered incentive spirometry and educated patient on how to use it and its importance. Continue contact and droplet precautions. Continue p.o. Decadron 6 mg daily x10 days. Discontinued azithromycin 500 mg daily and Rocephin 2 g daily in the setting of possible community-acquired pneumonia. Infectious disease consulted; appreciate recs - continue to monitor #Dehydrationresolved Status post IV fluid resuscitation. Encourage patient to increase p.o. intake. #Hypertension - home medications: Lisinopril/HCTZ 20-25 mg daily - current medications: Currently holding as patient is normotensive - SBP goal <160 and DBP goal <90 while inpatient - continue to monitor #HIV Continue home medications. Infectious disease consulted; appreciate recs #Advanced care planning -Disease education conducted, care plan discussed, diagnoses discussed, prognosis discussed, and patient acknowledges understanding with care plan -Time: +30 min Disposition Plan: Continue medical management Total Time Spent with Patient (Minutes): 45 minutes History Interval history: No acute events overnight. Hospitalist Physical - Constitutional Vitals: Temp Pulse Resp BP Pulse Ox 97.7 F 65 18 119/81 94 07/15/21 04:46 07/15/21 04:46 07/15/21 04:46 07/15/21 04:46 07/15/21 04:46 General appearance: Present: no acute distress, well-nourished - EENT Eyes: Present: PERRL, EOM intact ENT: hearing intact, clear oral mucosa, dentition normal - Neck Neck: Present: supple, normal ROM - Respiratory Respiratory effort: normal Respiratory: bilateral: diminished (On 3.5 L nasal cannula) - Cardiovascular Rhythm: regular Heart Sounds: Present: S1 & S2 - Extremities Extremities: no ischemia, pulses intact, pulses symmetrical, No edema, normal temperature, normal color, Full ROM Peripheral Pulses: within normal limits - Abdominal General gastrointestinal: soft, non-tender, non-distended, normal bowel sounds - Integumentary Integumentary: Present: clear, warm, dry - Psychiatric Psychiatric: appropriate mood/affect, cooperative - Neurologic Neurologic: CNII-XII intact, moves all extremities - Allied Health Allied health notes reviewed: nursing HEART Score - HEART Score Troponin: Troponin T < 0.010 ng/mL (0.00-0.029) 07/12/21 22:47 Results - Labs CBC & Chem 7: 07/15/21 07:19 07/15/21 07:19 Labs: Laboratory Last Values WBC 4.9 K/mm3 (4.5-11.0) 07/15/21 07:19 RBC 3.88 M/mm3 (3.65-5.03) 07/15/21 07:19 Hgb 10.7 gm/dl (11.8-15.2) L 07/15/21 07:19 Hct 33.0 % (35.5-45.6) L 07/15/21 07:19 MCV 85 fl (84-94) 07/15/21 07:19 MCH 28 pg (28-32) 07/15/21 07:19 MCHC 32 % (32-34) 07/15/21 07:19 RDW 13.2 % (13.2-15.2) 07/15/21 07:19 Plt Count 173 K/mm3 (140-440) 07/15/21 07:19 Lymph % (Auto) 10.1 % (13.4-35.0) L 07/15/21 07:19 Alger % (Auto) 5.6 % (0.0-7.3) 07/15/21 07:19 Eos % (Auto) 0.0 % (0.0-4.3) 07/15/21 07:19 Baso % (Auto) 0.2 % (0.0-1.8) 07/15/21 07:19 Lymph # (Auto) 0.5 K/mm3 (1.2-5.4) L 07/15/21 07:19 Alger # (Auto) 0.3 K/mm3 (0.0-0.8) 07/15/21 07:19 Eos # (Auto) 0.0 K/mm3 (0.0-0.4) 07/15/21 07:19 Baso # (Auto) 0.0 K/mm3 (0.0-0.1) 07/15/21 07:19 Seg Neutrophils % 84.1 % (40.0-70.0) H 07/15/21 07:19 Seg Neutrophils # 4.1 K/mm3 (1.8-7.7) 07/15/21 07:19 D-Dimer 345.29 ng/mlDDU (0-234) H 07/14/21 05:57 Sodium 138 mmol/L (137-145) 07/15/21 07:19 Potassium 4.0 mmol/L (3.6-5.0) D 07/15/21 07:19 Chloride 102.5 mmol/L (98-107) 07/15/21 07:19 Carbon Dioxide 22 mmol/L (22-30) 07/15/21 07:19 Anion Gap 18 mmol/L 07/15/21 07:19 BUN 39 mg/dL (9-20) H 07/15/21 07:19 Creatinine 1.8 mg/dL (0.8-1.3) H 07/15/21 07:19 Estimated GFR 46 ml/min 07/15/21 07:19 BUN/Creatinine Ratio 22 % 07/15/21 07:19 Glucose 201 mg/dL (75-100) H 07/15/21 07:19 Lactic Acid 1.30 mmol/L (0.7-2.0) 07/12/21 23:32 Calcium 7.7 mg/dL (8.4-10.2) L 07/15/21 07:19 Ferritin 6242.0 ng/mL (30.0-300.0) H 07/14/21 05:57 Total Bilirubin 1.00 mg/dL (0.1-1.2) 07/12/21 20:58 AST 76 units/L (5-40) H 07/12/21 20:58 ALT 29 units/L (7-56) 07/12/21 20:58 Alkaline Phosphatase 67 units/L (35-129) 07/12/21 20:58 Lactate Dehydrogenase 506 units/L (91-180) H 07/14/21 05:57 Troponin T < 0.010 ng/mL (0.00-0.029) 07/12/21 22:47 C-Reactive Protein 3.10 mg/dL (0.00-1.30) H 07/14/21 05:57 Total Protein 9.3 g/dL (6.3-8.2) H 07/12/21 20:58 Albumin 3.4 g/dL (3.9-5) L 07/12/21 20:58 Albumin/Globulin Ratio 0.6 % 07/12/21 20:58 Procalcitonin 0.10 ng/mL (<0.15) 07/13/21 08:29 Urine Eosinophils None seen (None Seen) 07/14/21 00:45 Urine Creatinine 157.9 mg/dL (0.1-20.0) H 07/14/21 00:45 Protein/Creatinin Ratio 2.37 07/14/21 00:45 Urine Sodium 47 mmol/L 07/14/21 00:45 Urine Total Protein 375 mg/dL (5-11.8) H 07/14/21 00:45 Coronavirus (PCR) Positive (Negative) A 07/14/21 Unknown Microbiology: Microbiology 07/12/21 23:32 Peripheral/Venous Blood Culture - Preliminary NO GROWTH AFTER 48 HOURS 07/13/21 00:11 Peripheral/Venous Blood Culture - Preliminary NO GROWTH AFTER 48 HOURS Chavarria/IV: Voiding Method Toilet Active Medications - Current Medications Current Medications: Generic Name Dose Route Start Last Admin Trade Name Freq PRN Reason Stop Dose Admin Acetaminophen 650 mg 07/13/21 01:33 07/13/21 21:54 Acetaminophen 325 Mg Tab PO 650 mg Q4H PRN Administration Pain MILD(1-3)/Fever >100.5/RAMOS Albuterol 2.5 mg 07/13/21 01:57 Albuterol 2.5 Mg/3 Ml Nebu IH Q4HRT PRN Shortness Of Breath Benzonatate 100 mg 07/13/21 06:00 07/15/21 05:39 Benzonatate 100 Mg Cap PO 100 mg Q8HR LACY Administration Calcium Carbonate/Glycine 1,250 mg 07/15/21 10:00 Calcium Carbonate 1250 Mg Tab PO BID LACY Dapsone 100 mg 07/13/21 10:00 07/14/21 10:00 Dapsone 100mg Tab PO 100 mg DAILY LACY Administration Dexamethasone 6 mg 07/13/21 15:00 07/14/21 09:12 Dexamethasone 4 Mg Tab PO 07/23/21 14:59 6 mg DAILY LACY Administration Emtricitabine 200 mg 07/13/21 15:00 07/13/21 16:51 Emtricitabine 200 Mg Cap PO 200 mg Q48H LACY Administration Famotidine 10 mg 07/13/21 10:00 07/14/21 23:28 Famotidine 10 Mg Tab PO 10 mg BID LACY Administration Heparin Sodium (Porcine) 5,000 unit 07/13/21 06:00 07/15/21 05:38 Heparin 5,000 Unit/1 Ml Vial SUB-Q 5,000 unit Q8HR LACY Administration Hydromorphone HCl 0.5 mg 07/13/21 01:33 Hydromorphone 1 Mg/1 Ml Inj IV Q3H PRN Pain , Severe (7-10) Sodium Bicarbonate 150 meq/ 1,150 mls @ 125 mls/hr 07/14/21 10:00 07/15/21 04:36 Dextrose IV 125 mls/hr DIRECT LACY Administration Morphine Sulfate 2 mg 07/13/21 01:33 Morphine 2 Mg/1 Ml Inj IV Q4H PRN Pain, Moderate (4-6) Nystatin 1 applic 07/13/21 10:00 07/14/21 23:33 Nystatin Powder 15 Gm TP 1 applic BID LACY Administration Ondansetron HCl 4 mg 07/13/21 01:33 Ondansetron 4 Mg/2 Ml Inj IV Q8H PRN Nausea And Vomiting Sodium Chloride 10 ml 07/13/21 10:00 07/14/21 23:29 Sodium Chloride 0.9% 10 Ml Flush Syringe IV 10 ml BID LACY Administration Sodium Chloride 10 ml 07/13/21 01:33 Sodium Chloride 0.9% 10 Ml Flush Syringe IV PRN PRN LINE FLUSH Nutrition/Malnutrition Assess - Dietary Evaluation Nutrition/Malnutrition Findings: Nutrition Notes Start: 07/14/21 10:03 Freq: Status: Active Protocol: Document 07/14/21 10:03 HARESH (Rec: 07/14/21 10:04 HARESH [id number]) Nutrition Notes Need for Assessment generated from: digital composer Initial or Follow up Brief Note Subjective/Other Information Pt screened for skin risk, however, Jack score is 19. Will assess upon further consult or LOS.
[2021-07-15] MEDS: CALCIUM CARBONATE 1250 MG TAB PO SCH ×2 (10:15→23:22)
[2021-07-15] MEDS: DAPSONE 100 MG PO SCH (10:15)
[2021-07-15] MEDS: DEXAMETHASONE 4 MG TAB PO SCH (10:15)
[2021-07-15] MEDS: FAMOTIDINE 10 MG TAB PO SCH ×2 (10:15→23:22)
[2021-07-15] MEDS: NYSTATIN POWDER 15 GM TP SCH ×2 (10:16→23:27)
--- NOTE | 2021-07-15 11:03 | Progress Note ---
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 for supplier development manager * follow up covid prn * ID following \ Subjective Date of service: 07/15/21 Principal diagnosis: camille, metabolic acidosis Interval history: resting in bed labs and chart reviewed Objective - Exam Narrative Exam: primary team exam noted exam deferred for preservation of PPE - Vital Signs Vital signs: Vital Signs - 12hr 07/14/21 07/15/21 23:11 04:46 Temperature 97.8 F 97.7 F Pulse Rate 72 65 Respiratory 18 18 Rate Blood Pressure 125/86 119/81 O2 Sat by Pulse 91 94 Oximetry - Lab 07/15/21 07:19 07/15/21 07:19 Most recent lab results Calcium 7.7 mg/dL (8.4-10.2) L 07/15/21 07:19 Urine Creatinine 157.9 mg/dL (0.1-20.0) H 07/14/21 00:45 Urine Sodium 47 mmol/L 07/14/21 00:45 Urine Total Protein 375 mg/dL (5-11.8) H 07/14/21 00:45 Medications & Allergies - Medications Allergies/Adverse Reactions: Allergies Sulfa (Sulfonamide Antibiotics) Allergy (Intermediate, Verified 07/14/21 07:34) Hives Home Medications: Home Medications Medication Instructions Recorded Confirmed Last Taken Type Dapsone 100 mg PO DAILY 03/30/15 07/14/21 Unknown History Elviteg/Cob/Emtri/Tenofo Disop 1 each PO DAILY 03/30/15 07/14/21 Unknown History [Stribild Tablet] Lisinopril/Hydrochlorothiazide 1 tab PO QDAY 03/30/15 07/14/21 Unknown History [Zestoretic 20-25 mg] Albuterol Mdi (or & Nicu Only) 2 puff IH QID PRN #1 inhalation 03/31/15 07/14/21 Unknown Rx [ProAir HFA Inhaler] Nystatin [Nystop Powder] 1 applicatio TP BID #1 bottle 03/31/15 07/14/21 Unknown Rx Acetaminophen/Codeine [Tylenol 1 tab PO Q6H PRN #12 tab 08/13/18 07/14/21 Unknown Rx /Codeine # 3 tab] Clindamycin [Clindamycin CAP] 300 mg PO Q8H #21 cap 08/13/18 07/14/21 Unknown Rx Ibuprofen [Motrin] 600 mg PO Q8H PRN #20 tablet 08/13/18 07/14/21 Unknown Rx Albuterol Mdi (or & Nicu Only) 2 puff IH QID PRN #8.5 gram 11/02/19 07/14/21 Unknown Rx [ProAir HFA Inhaler] Benzonatate [Tessalon Perles] 100 mg PO Q8HR #30 capsule 11/02/19 07/14/21 Unknown Rx Fluconazole [Diflucan TAB] 200 mg PO QDAY 21 Days #21 tablet 01/22/20 07/14/21 Unknown Rx traMADoL [Ultram 50 MG tab] 50 mg PO Q6HR PRN #12 tablet 01/22/20 07/14/21 Unknown Rx Active Medications: Generic Name Dose Route Start Last Admin Trade Name Freq PRN Reason Stop Dose Admin Acetaminophen 650 mg 07/13/21 01:33 07/13/21 21:54 Acetaminophen 325 Mg Tab PO 650 mg Q4H PRN Administration Pain MILD(1-3)/Fever >100.5/RAMOS Albuterol 2.5 mg 07/13/21 01:57 Albuterol 2.5 Mg/3 Ml Nebu IH Q4HRT PRN Shortness Of Breath Benzonatate 100 mg 07/13/21 06:00 07/15/21 05:39 Benzonatate 100 Mg Cap PO 100 mg Q8HR LACY Administration Calcium Carbonate/Glycine 1,250 mg 07/15/21 10:00 07/15/21 10:15 Calcium Carbonate 1250 Mg Tab PO 1,250 mg BID LACY Administration Dapsone 100 mg 07/13/21 10:00 07/15/21 10:15 Dapsone 100mg Tab PO 100 mg DAILY LACY Administration Dexamethasone 6 mg 07/13/21 15:00 07/15/21 10:15 Dexamethasone 4 Mg Tab PO 07/23/21 14:59 6 mg DAILY LACY Administration Emtricitabine 200 mg 07/13/21 15:00 07/13/21 16:51 Emtricitabine 200 Mg Cap PO 200 mg Q48H LACY Administration Famotidine 10 mg 07/13/21 10:00 07/15/21 10:15 Famotidine 10 Mg Tab PO 10 mg BID LACY Administration Heparin Sodium (Porcine) 5,000 unit 07/13/21 06:00 07/15/21 05:38 Heparin 5,000 Unit/1 Ml Vial SUB-Q 5,000 unit Q8HR LACY Administration Hydromorphone HCl 0.5 mg 07/13/21 01:33 Hydromorphone 1 Mg/1 Ml Inj IV Q3H PRN Pain , Severe (7-10) Sodium Bicarbonate 150 meq/ 1,150 mls @ 125 mls/hr 07/14/21 10:00 07/15/21 04:36 Dextrose IV 125 mls/hr DIRECT LACY Administration Morphine Sulfate 2 mg 07/13/21 01:33 Morphine 2 Mg/1 Ml Inj IV Q4H PRN Pain, Moderate (4-6) Nystatin 1 applic 07/13/21 10:00 07/15/21 10:16 Nystatin Powder 15 Gm TP 1 applic BID LACY Administration Ondansetron HCl 4 mg 07/13/21 01:33 Ondansetron 4 Mg/2 Ml Inj IV Q8H PRN Nausea And Vomiting Sodium Chloride 10 ml 07/13/21 10:00 07/15/21 10:15 Sodium Chloride 0.9% 10 Ml Flush Syringe IV 10 ml BID LACY Administration Sodium Chloride 10 ml 07/13/21 01:33 Sodium Chloride 0.9% 10 Ml Flush Syringe IV PRN PRN LINE FLUSH
[2021-07-15] MEDS ORDERED: SODIUM CHLORIDE 0.9% 1000 ML 1,000 ML IV SCH (11:15)
[2021-07-16 04:18] VITALS: BP 145/100
[2021-07-16] MEDS: HEPARIN 5,000 UNIT/1 ML VIAL SUB-Q SCH ×2 (06:20→14:35)
[2021-07-16] MEDS: BENZONATATE 100 MG CAP PO SCH ×2 (06:20→14:36)
--- NOTE | 2021-07-16 07:42 | Progress Note ---
Assessment and Plan Assessment and plan: #CAMILLE on CKD stage 3improving Creatinine 2.0-->1.8-->1.6 (on presentation 2.9) Nephrology consulted; appreciate recs Encourage continued p.o. intake with fluids. Patient expresses understanding. Likely in the setting of pneumonia. Renally dose medications and avoid nephrotoxic meds. Continue to monitor with daily BMP #COVID-19 pneumonia #Acute hypoxic respiratory failure - etiology: COVID-19 infection - baseline oxygen requirements: None - supplemental oxygen: Patient has since removed his nasal cannula. Previously on 3 L nasal cannula - Continue protocol: continue pulse oximetry, wean oxygen as tolerated, ordered incentive spirometry and educated patient on how to use it and its importance. Continue contact and droplet precautions. Continue p.o. Decadron 6 mg daily x10 days. Discontinued azithromycin 500 mg daily and Rocephin 2 g daily in the setting of possible community-acquired pneumonia. Infectious disease consulted; appreciate recs Pending walk test. - continue to monitor #Dehydrationresolved Status post IV fluid resuscitation. Encourage patient to increase p.o. intake. #Hypertension - home medications: Lisinopril/HCTZ 20-25 mg daily - current medications: Currently holding as patient is normotensive - SBP goal <160 and DBP goal <90 while inpatient - continue to monitor #HIV Continue home medications. Infectious disease consulted; appreciate recs #Advanced care planning -Disease education conducted, care plan discussed, diagnoses discussed, prognosis discussed, and patient acknowledges understanding with care plan -Time: +30 min #Discharge planning - Patient is pending resolution of acute hypoxic respiratory failure. Pending walk test. - Case management has been made aware. - Discharge is tentatively oxygen saturations >94% with ambulation on room air. Disposition Plan: Continue medical management Total Time Spent with Patient (Minutes): 45 minutes History Interval history: No acute events overnight. Hospitalist Physical - Constitutional Vitals: Temp Pulse Resp BP Pulse Ox 97.6 F 59 L 16 145/100 90 07/16/21 04:18 07/16/21 04:18 07/16/21 04:18 07/16/21 04:18 07/16/21 04:18 General appearance: Present: no acute distress, well-nourished - EENT Eyes: Present: PERRL, EOM intact ENT: hearing intact, clear oral mucosa, dentition normal - Neck Neck: Present: supple, normal ROM - Respiratory Respiratory effort: normal Respiratory: bilateral: diminished (On 3 L nasal cannula) - Cardiovascular Rhythm: regular Heart Sounds: Present: S1 & S2 - Extremities Extremities: no ischemia, pulses intact, pulses symmetrical, No edema, normal temperature, normal color, Full ROM Peripheral Pulses: within normal limits - Abdominal General gastrointestinal: soft, non-tender, non-distended, normal bowel sounds - Integumentary Integumentary: Present: clear, warm, dry - Psychiatric Psychiatric: appropriate mood/affect, intact judgment & insight, cooperative - Neurologic Neurologic: CNII-XII intact, moves all extremities - Allied Health Allied health notes reviewed: nursing HEART Score - HEART Score Troponin: Troponin T < 0.010 ng/mL (0.00-0.029) 07/12/21 22:47 Results - Labs CBC & Chem 7: 07/15/21 07:19 07/16/21 08:55 Labs: Laboratory Last Values WBC 4.9 K/mm3 (4.5-11.0) 07/15/21 07:19 RBC 3.88 M/mm3 (3.65-5.03) 07/15/21 07:19 Hgb 10.7 gm/dl (11.8-15.2) L 07/15/21 07:19 Hct 33.0 % (35.5-45.6) L 07/15/21 07:19 MCV 85 fl (84-94) 07/15/21 07:19 MCH 28 pg (28-32) 07/15/21 07:19 MCHC 32 % (32-34) 07/15/21 07:19 RDW 13.2 % (13.2-15.2) 07/15/21 07:19 Plt Count 173 K/mm3 (140-440) 07/15/21 07:19 Lymph % (Auto) 10.1 % (13.4-35.0) L 07/15/21 07:19 [place] % (Auto) 5.6 % (0.0-7.3) 07/15/21 07:19 Eos % (Auto) 0.0 % (0.0-4.3) 07/15/21 07:19 Baso % (Auto) 0.2 % (0.0-1.8) 07/15/21 07:19 Lymph # (Auto) 0.5 K/mm3 (1.2-5.4) L 07/15/21 07:19 [place] # (Auto) 0.3 K/mm3 (0.0-0.8) 07/15/21 07:19 Eos # (Auto) 0.0 K/mm3 (0.0-0.4) 07/15/21 07:19 Baso # (Auto) 0.0 K/mm3 (0.0-0.1) 07/15/21 07:19 Seg Neutrophils % 84.1 % (40.0-70.0) H 07/15/21 07:19 Seg Neutrophils # 4.1 K/mm3 (1.8-7.7) 07/15/21 07:19 D-Dimer 345.29 ng/mlDDU (0-234) H 07/14/21 05:57 Sodium 138 mmol/L (137-145) 07/15/21 07:19 Potassium 4.0 mmol/L (3.6-5.0) D 07/15/21 07:19 Chloride 102.5 mmol/L (98-107) 07/15/21 07:19 Carbon Dioxide 22 mmol/L (22-30) 07/15/21 07:19 Anion Gap 18 mmol/L 07/15/21 07:19 BUN 39 mg/dL (9-20) H 07/15/21 07:19 Creatinine 1.8 mg/dL (0.8-1.3) H 07/15/21 07:19 Estimated GFR 46 ml/min 07/15/21 07:19 BUN/Creatinine Ratio 22 % 07/15/21 07:19 Glucose 201 mg/dL (75-100) H 07/15/21 07:19 Lactic Acid 1.30 mmol/L (0.7-2.0) 07/12/21 23:32 Calcium 7.7 mg/dL (8.4-10.2) L 07/15/21 07:19 Ferritin 6242.0 ng/mL (30.0-300.0) H 07/14/21 05:57 Total Bilirubin 1.00 mg/dL (0.1-1.2) 07/12/21 20:58 AST 76 units/L (5-40) H 07/12/21 20:58 ALT 29 units/L (7-56) 07/12/21 20:58 Alkaline Phosphatase 67 units/L (35-129) 07/12/21 20:58 Lactate Dehydrogenase 506 units/L (91-180) H 07/14/21 05:57 Troponin T < 0.010 ng/mL (0.00-0.029) 07/12/21 22:47 C-Reactive Protein 3.10 mg/dL (0.00-1.30) H 07/14/21 05:57 Total Protein 9.3 g/dL (6.3-8.2) H 07/12/21 20:58 Albumin 3.4 g/dL (3.9-5) L 07/12/21 20:58 Albumin/Globulin Ratio 0.6 % 07/12/21 20:58 Procalcitonin 0.10 ng/mL (<0.15) 07/13/21 08:29 Urine Eosinophils None seen (None Seen) 07/14/21 00:45 Urine Creatinine 157.9 mg/dL (0.1-20.0) H 07/14/21 00:45 Protein/Creatinin Ratio 2.37 07/14/21 00:45 Urine Sodium 47 mmol/L 07/14/21 00:45 Urine Total Protein 375 mg/dL (5-11.8) H 07/14/21 00:45 Coronavirus (PCR) Positive (Negative) A 07/14/21 Unknown Microbiology: Microbiology 07/12/21 23:32 Peripheral/Venous Blood Culture - Preliminary NO GROWTH AFTER 72 HOURS 07/13/21 00:11 Peripheral/Venous Blood Culture - Preliminary NO GROWTH AFTER 72 HOURS [place]/IV: Voiding Method Toilet Active Medications - Current Medications Current Medications: Generic Name Dose Route Start Last Admin Trade Name Freq PRN Reason Stop Dose Admin Acetaminophen 650 mg 07/13/21 01:33 07/13/21 21:54 Acetaminophen 325 Mg Tab PO 650 mg Q4H PRN Administration Pain MILD(1-3)/Fever >100.5/RAMOS Albuterol 2.5 mg 07/13/21 01:57 Albuterol 2.5 Mg/3 Ml Nebu IH Q4HRT PRN Shortness Of Breath Benzonatate 100 mg 07/13/21 06:00 07/16/21 06:20 Benzonatate 100 Mg Cap PO 100 mg Q8HR LACY Administration Calcium Carbonate/Glycine 1,250 mg 07/15/21 10:00 07/15/21 23:22 Calcium Carbonate 1250 Mg Tab PO 1,250 mg BID LACY Administration Dapsone 100 mg 07/13/21 10:00 07/15/21 10:15 Dapsone 100mg Tab PO 100 mg DAILY LACY Administration Dexamethasone 6 mg 07/13/21 15:00 07/15/21 10:15 Dexamethasone 4 Mg Tab PO 07/23/21 14:59 6 mg DAILY LACY Administration Emtricitabine 200 mg 07/13/21 15:00 07/13/21 16:51 Emtricitabine 200 Mg Cap PO 200 mg Q48H LACY Administration Famotidine 10 mg 07/13/21 10:00 07/15/21 23:22 Famotidine 10 Mg Tab PO 10 mg BID LACY Administration Heparin Sodium (Porcine) 5,000 unit 07/13/21 06:00 07/16/21 06:20 Heparin 5,000 Unit/1 Ml Vial SUB-Q 5,000 unit Q8HR LACY Administration Hydromorphone HCl 0.5 mg 07/13/21 01:33 Hydromorphone 1 Mg/1 Ml Inj IV Q3H PRN Pain , Severe (7-10) Morphine Sulfate 2 mg 07/13/21 01:33 Morphine 2 Mg/1 Ml Inj IV Q4H PRN Pain, Moderate (4-6) Nystatin 1 applic 07/13/21 10:00 07/15/21 23:27 Nystatin Powder 15 Gm TP Not Given BID [facility] Ondansetron HCl 4 mg 07/13/21 01:33 Ondansetron 4 Mg/2 Ml Inj IV Q8H PRN Nausea And Vomiting Sodium Chloride 10 ml 07/13/21 10:00 07/15/21 23:25 Sodium Chloride 0.9% 10 Ml Flush Syringe IV 10 ml BID LACY Administration Sodium Chloride 10 ml 07/13/21 01:33 Sodium Chloride 0.9% 10 Ml Flush Syringe IV PRN PRN LINE FLUSH Nutrition/Malnutrition Assess - Dietary Evaluation Nutrition/Malnutrition Findings: Nutrition Notes Start: 07/14/21 10:03 Freq: Status: Active Protocol: Document 07/14/21 10:03 HARESH (Rec: 07/14/21 10:04 HARESH [id number]) Nutrition Notes Need for Assessment generated from: backend tester Initial or Follow up Brief Note Subjective/Other Information Pt screened for skin risk, however, Jack score is 19. Will assess upon further consult or LOS.
--- NOTE | 2021-07-16 09:43 | Progress Note ---
Assessment and Plan Impression: * Acute kidney injury on chronic kidney disease * Acute hypoxic resp failure * COVID 19 PNA * Proteinuria * HIV * Metabolic acidosis * Hyponatremia Plan: * Renal function improveed - continue current management; no indication for renal replacement therapy at this time * IVF for hydration * Management of COVID 19 per primary team/ID * Strict i/os * Avoid nephrotoxins \ Subjective Date of service: 07/16/21 Principal diagnosis: evelyn, metabolic acidosis Objective - Vital Signs Vital signs: Vital Signs - 12hr 07/15/21 07/16/21 22:00 04:18 Temperature 97.6 F Pulse Rate 59 L Respiratory 16 Rate Blood Pressure 145/100 O2 Sat by Pulse 93 90 Oximetry - Lab 07/15/21 07:19 07/15/21 07:19 Most recent lab results Calcium 7.7 mg/dL (8.4-10.2) L 07/15/21 07:19 Urine Creatinine 157.9 mg/dL (0.1-20.0) H 07/14/21 00:45 Urine Sodium 47 mmol/L 07/14/21 00:45 Urine Total Protein 375 mg/dL (5-11.8) H 07/14/21 00:45 Medications & Allergies - Medications Allergies/Adverse Reactions: Allergies Sulfa (Sulfonamide Antibiotics) Allergy (Intermediate, Verified 07/14/21 07:34) Hives Home Medications: Home Medications Medication Instructions Recorded Confirmed Last Taken Type Dapsone 100 mg PO DAILY 03/30/15 07/14/21 Unknown History Elviteg/Cob/Emtri/Tenofo Disop 1 each PO DAILY 03/30/15 07/14/21 Unknown History [Stribild Tablet] Lisinopril/Hydrochlorothiazide 1 tab PO QDAY 03/30/15 07/14/21 Unknown History [Zestoretic 20-25 mg] Albuterol Mdi (or & Nicu Only) 2 puff IH QID PRN #1 inhalation 03/31/15 07/14/21 Unknown Rx [ProAir HFA Inhaler] Nystatin [Nystop Powder] 1 applicatio TP BID #1 bottle 03/31/15 07/14/21 Unknown Rx Acetaminophen/Codeine [Tylenol 1 tab PO Q6H PRN #12 tab 08/13/18 07/14/21 Unknown Rx /Codeine # 3 tab] Clindamycin [Clindamycin CAP] 300 mg PO Q8H #21 cap 08/13/18 07/14/21 Unknown Rx Ibuprofen [Motrin] 600 mg PO Q8H PRN #20 tablet 08/13/18 07/14/21 Unknown Rx Albuterol Mdi (or & Nicu Only) 2 puff IH QID PRN #8.5 gram 11/02/19 07/14/21 Unknown Rx [ProAir HFA Inhaler] Benzonatate [Tessalon Perles] 100 mg PO Q8HR #30 capsule 11/02/19 07/14/21 Unknown Rx Fluconazole [Diflucan TAB] 200 mg PO QDAY 21 Days #21 tablet 01/22/20 07/14/21 Unknown Rx traMADoL [Ultram 50 MG tab] 50 mg PO Q6HR PRN #12 tablet 01/22/20 07/14/21 Unknown Rx Active Medications: Generic Name Dose Route Start Last Admin Trade Name Freq PRN Reason Stop Dose Admin Acetaminophen 650 mg 07/13/21 01:33 07/13/21 21:54 Acetaminophen 325 Mg Tab PO 650 mg Q4H PRN Administration Pain MILD(1-3)/Fever >100.5/RAMOS Albuterol 2.5 mg 07/13/21 01:57 Albuterol 2.5 Mg/3 Ml Nebu IH Q4HRT PRN Shortness Of Breath Benzonatate 100 mg 07/13/21 06:00 07/16/21 06:20 Benzonatate 100 Mg Cap PO 100 mg Q8HR LACY Administration Calcium Carbonate/Glycine 1,250 mg 07/15/21 10:00 07/15/21 23:22 Calcium Carbonate 1250 Mg Tab PO 1,250 mg BID LACY Administration Dapsone 100 mg 07/13/21 10:00 07/15/21 10:15 Dapsone 100mg Tab PO 100 mg DAILY LACY Administration Dexamethasone 6 mg 07/13/21 15:00 07/15/21 10:15 Dexamethasone 4 Mg Tab PO 07/23/21 14:59 6 mg DAILY LACY Administration Emtricitabine 200 mg 07/13/21 15:00 07/13/21 16:51 Emtricitabine 200 Mg Cap PO 200 mg Q48H LACY Administration Famotidine 10 mg 07/13/21 10:00 07/15/21 23:22 Famotidine 10 Mg Tab PO 10 mg BID LACY Administration Heparin Sodium (Porcine) 5,000 unit 07/13/21 06:00 07/16/21 06:20 Heparin 5,000 Unit/1 Ml Vial SUB-Q 5,000 unit Q8HR LACY Administration Hydromorphone HCl 0.5 mg 07/13/21 01:33 Hydromorphone 1 Mg/1 Ml Inj IV Q3H PRN Pain , Severe (7-10) Morphine Sulfate 2 mg 07/13/21 01:33 Morphine 2 Mg/1 Ml Inj IV Q4H PRN Pain, Moderate (4-6) Nystatin 1 applic 07/13/21 10:00 07/15/21 23:27 Nystatin Powder 15 Gm TP Not Given BID [facility] Ondansetron HCl 4 mg 07/13/21 01:33 Ondansetron 4 Mg/2 Ml Inj IV Q8H PRN Nausea And Vomiting Sodium Chloride 10 ml 07/13/21 10:00 07/15/21 23:25 Sodium Chloride 0.9% 10 Ml Flush Syringe IV 10 ml BID LACY Administration Sodium Chloride 10 ml 07/13/21 01:33 Sodium Chloride 0.9% 10 Ml Flush Syringe IV PRN PRN LINE FLUSH
[2021-07-16 09:52] LABS: Calcium 8.2 mg/dL (8.4-10.2)
[2021-07-16] MEDS: DAPSONE 100 MG PO SCH (12:12)
[2021-07-16] MEDS: DEXAMETHASONE 4 MG TAB PO SCH (12:13)
[2021-07-16] MEDS: FAMOTIDINE 10 MG TAB PO SCH (12:13)
[2021-07-16] MEDS: NYSTATIN POWDER 15 GM TP SCH (12:14)
--- NOTE | 2021-07-16 12:30 | Discharge Summary ---
Providers - Providers Date of Admission: 07/13/21 01:33 Attending physician: ERICK FAULKNER MD 07/13/21 01:33 Consult to Physician [CONS] Routine Comment: Consulting Provider: CHEYENNE HUFFMAN Physician Instructions: Reason For Exam: evelyn Consult to Physician [CONS] Routine Comment: Consulting Provider: MARK BECKHAM Physician Instructions: Reason For Exam: covid Primary care physician: [facility] Hospitalization Reason for admission: Acute hypoxic respiratory failure; EVELYN; hyponatremia Condition: Stable Pertinent studies: Reviewed. Procedures: None. Hospital course: The patient is a 65-year-old male past medical history of hypertension and HIV (on antiretroviral therapy) who presented after nausea, vomiting, subjective fevers, myalgias, and fatigue with ambulation. The patient is typically pretty active and does not require oxygen at home. On presentation, the patient was found to have a creatinine of 2.9, sodium 128, and incidental findings of bilateral patchy groundglass opacities on his CT abdomen/pelvis. The patient was admitted for management of acute hypoxic respiratory failure secondary to now diagnosed COVID-19 pneumonia, EVELYN, hyponatremia, and dehydration. The patient was initiated on IV fluid resuscitation, nephrology was consulted. The patient's creatinine has since improved. By encouraging p.o. intake, the patient's hyponatremia has also improved. The patient has been receiving p.o. dexamethasone per COVID-19 protocols. Patient was not a candidate for remdesivir in the setting of acute renal dysfunction. The patient has since been weaned off of supplemental oxygen and is saturating appropriately with ambulation. Smitha ent has been counseled about the need to continue quarantine until 07/24/2021, and he expresses understanding. Patient is medically clear for discharge. Disposition: 01 HOME / SELF CARE / HOMELESS Final Discharge Diagnosis (Prints w/discharge instructions): Acute hypoxic respiratory failure, COVID-19 pneumonia, EVELYN (likely vasomotor nephropathy), hy ponatremia, dehydration, HIV Time spent for discharge: 45 min Core Measure Documentation - Palliative Care Palliative Care/ Comfort Measures: Not Applicable - Core Measures Any of the following diagnoses?: none Exam - Constitutional Vitals: Temp Pulse Resp BP Pulse Ox 97.6 F 59 L 16 145/100 90 07/16/21 04:18 07/16/21 04:18 07/16/21 04:18 07/16/21 04:18 07/16/21 04:18 General appearance: Present: no acute distress, well-nourished - EENT Eyes: Present: PERRL, EOM intact ENT: hearing intact, clear oral mucosa, dentition normal - Neck Neck: Present: supple, normal ROM - Respiratory Respiratory effort: normal Respiratory: bilateral: diminished - Cardiovascular Rhythm: regular Heart Sounds: Present: S1 & S2 - Extremities Extremities: no ischemia, pulses intact, pulses symmetrical, No edema, normal temperature, normal color, Full ROM Peripheral Pulses: within normal limits - Abdominal General gastrointestinal: Present: soft, non-tender, non-distended, normal bowel sounds Male genitourinary: Present: deferred - Rectal Rectal Exam: deferred - Integumentary Integumentary: Present: clear, warm, dry - Musculoskeletal Musculoskeletal: strength equal bilaterally - Psychiatric Psychiatric: appropriate mood/affect, intact judgment & insight, memory intact, cooperative - Neurologic Neurologic: CNII-XII intact, moves all extremities Plan Activity: advance as tolerated Diet: low salt Additional Instructions: The patient is a 65-year-old male past medical history of hypertension and HIV (on antiretroviral therapy) who presented after nausea, vomiting, subjective fevers, myalgias, and fatigue with ambulation. The patient is typically pretty active and does not require oxygen at home. On presentation, the patient was found to have a creatinine of 2.9, sodium 128, and incidental findings of bilateral patchy groundglass opacities on his CT abdomen/pelvis. The patient was admitted for management of acute hypoxic respiratory failure secondary to now diagnosed COVID-19 pneumonia, EVELYN, hyponatremia, and dehydration. The patient was initiated on IV fluid resuscitation, nephrology was consulted. The patient's creatinine has since improved. By encouraging p.o. intake, the patient's hyponatremia has also improved. The patient has been receiving p.o. dexamethasone per COVID-19 protocols. Patient was not a candidate for remdesivir in the setting of acute renal dysfunction. The patient has since been weaned off of supplemental oxygen and is saturating appropriately with ambulation. Patient has been counseled about the need to continue quarantine until 07/24/2021, and he expresses understanding. Patient is medically clear for discharge. Care Plan Goals: Patient is medically clear for discharge. Assessment: The patient is a 65-year-old male past medical history of hypertension and HIV (on antiretroviral therapy) who presented after nausea, vomiting, subjective fevers, myalgias, and fatigue with ambulation. The patient is typically pretty active and does not require oxygen at home. On presentation, the patient was found to have a creatinine of 2.9, sodium 128, and incidental findings of bilateral patchy groundglass opacities on his CT abdomen/pelvis. The patient was admitted for management of acute hypoxic respiratory failure secondary to now diagnosed COVID-19 pneumonia, EVELYN, hyponatremia, and dehydration. The patient was initiated on IV fluid resuscitation, nephrology was consulted. The patient's creatinine has since improved. By encouraging p.o. intake, the patient's hyponatremia has also improved. The patient has been receiving p.o. dexamethasone per COVID-19 protocols. Patient was not a candidate for remdesivir in the setting of acute renal dysfunction. The patient has since been weaned off of supplemental oxygen and is saturating appropriately with ambulation. Patient has been counseled about the need to continue quarantine until 07/24/2021, and he expresses understanding. Patient is medically clear for discharge. Follow up with: PRIMARY CAREMD [Primary Care Provider] - 7 Days Prescriptions: dexAMETHasone [Decadron] 6 mg PO DAILY #6 tablet
[2021-07-16] MEDS: CALCIUM CARBONATE 1250 MG TAB PO SCH (14:35)
[2021-07-18 03:38] LABS: CD4/CD8 Ratio 0.03 (0.86-5.00)
[2021-07-18 22:33] LABS: HIV-1 RNA QN PCR <1.30 Log cps/mL; HIV-1 RNA QN PCR <20 Copies/mL
== END 2021-07-16 15:15 | disposition home or self-care (01) | DRG 974 ==
LOC: ED 19:31 → 3A 07-13 01:33
PROVIDERS: ADMIT Hospitalist; ATTEND Student in an Organized Health Care Education/Training Program
DX: U07.1 COVID-19 (principal); J96.01 Acute respiratory failure with hypoxia; B20 Human immunodeficiency virus [HIV] disease; N17.0 Acute kidney failure with tubular necrosis; J12.82 Pneumonia due to coronavirus disease 2019; E86.0 Dehydration; E87.1 Hypo-osmolality and hyponatremia; E87.2 Acidosis; I12.9 Hypertensive chronic kidney disease with stage 1 through stage 4 chronic kidney disease, or unspecified chronic kidney disease; N18.30 Chronic kidney disease, stage 3 unspecified; R80.9 Proteinuria, unspecified
CPT/HCPCS: 36415; 71046; 74176; 80048; 80053; 82024; 82140; 82570; 82728; 83615; 84145; 84156; 84300; 84484; 85025; 85379; 86140; 87040; 87536; 89050; 93005; 94640; 94760; G0378; J3490; Q0162; J0696; J1644; J7030; J7070; J8540; U0003